=== PATIENT | female | born 2000 | race Caucasian/White ===

== ENCOUNTER 2023-12-08 12:35 | Emergency (ER) | payer SELFPAY ==
--- NOTE | 2023-12-08 12:55 | ERPHSYRPT ---
- History of Present Illness Time Seen by Provider: 12/08/23 12:50 Historian: patient Exam Limitations: no limitations Patient Subjective Stated Complaint: PT HERE FOR CHEST PAIN TO RIGHT SIDE OF CHEST TODAY WHILE AT WORK, NO COUGH,FEVER. SOME SOB AT WORK, NONE NOW Triage Nursing Assessment: PT ALERT, RESP EASY, SKIN W/D/P. WALKED IN GAIT STEADY, MOVES ALL EXT WELL, NO EDEMA NOTED Physician History: The patient, with a history of depression, presented with a new onset of chest pain that started at 10 o'clock while at work. The pain, described as "hammers hitting my chest," has been persistent since its onset. The patient rates the pain as a 6 out of 10 and also reports associated shortness of breath. There is no history of similar episodes in the past. The patient also reports increased frequency of urination and increased thirst, but denies any abdominal pain, nausea, vomiting, or diarrhea. There is a loca lized tenderness in the abdominal region. The patient denies any history of abdominal surgeries or any burning sensation during urination. The patient had consumed chicken after the onset of symptoms, which reportedly worsened the chest pain. The patient also requested medication for a concurrent headache. There is no recent change in medications, with the only regular medication being for depression, started last year. The patient denies any new [id number] supplements or vitamins. Timing/Duration: today Activities at Onset: activity Quality: pressure, sharpness Location: substernal Chest Pain Radiation: no radiation Severity of Pain-Max: severe Severity of Pain-Current: severe Modifying Factors: Improves With: nothing. Worsens With: exertion, movement Associated Symptoms: nausea, shortness of breath, headache, No vomiting, No palpitations, No heartburn, No abdominal pain, No cough, No fever, No edema, No back pain Prior Chest Pain/Cardiac Workup: no prior chest pain Nitro Today/Relief: 0.4 mg x 1, provided by ED Aspirin Treatment Today: 81 mg x 4, provided by ED Allergies/Adverse Reactions: No Known Drug Allergies Allergy (Unverified 12/08/23 12:41) Hx Tetanus, Diphtheria Vaccination/Date Given: No Hx Influenza Vaccination/Date Given: No Hx Pneumococcal Vaccination/Date Given: No Immunizations Up to Date: Yes Travel Risk - International Travel Have you traveled outside of the country in past 3 weeks: No - Emerging Infectious Disease Are you exhibiting symptoms associated with any current EIDs: No - Review of Systems All Other Systems: Reviewed and Negative - Female History Hx Last Menstrual Period: October Now: No - Social History Smoking Status: Never smoker Exposure to second hand smoke: Yes Drug Use: none - Social Determinants of Health Will the patient participate in the screening: Yes Do you worry about a steady place to live?: Yes Do you have any problems with any of the following?: No known problems In the past 12 months,have you had to go without utilities?: No Transportation Issues: No Has anyone in your support network made you feel unsafe?: No Have you or anyone in your house had to go without enough: No - Nursing Vital Signs Nursing Vital Signs: Initial Vital Signs Pulse Rate 92 H 12/08/23 12:34 Respiratory Rate 17 12/08/23 12:34 Blood Pressure 157/99 12/08/23 12:34 O2 Sat by Pulse Oximetry 100 12/08/23 12:34 Pain Scale Pain Intensity 4 - Physical Exam General Appearance: no apparent distress, obese Eye Exam: eyes nml inspection Ears, Nose, Throat Exam: normal ENT inspection Neck Exam: normal inspection, supple, full range of motion Respiratory Exam: normal breath sounds, lungs clear, airway intact, No chest tenderness, No respiratory distress Cardiovascular Exam: regular rate/rhythm, normal heart sounds, capillary refill <2 sec, No edema Gastrointestinal/Abdomen Exam: soft, No tenderness, No distention, No mass, No guarding, No rebound Extremity Exam: normal inspection, No swelling, No tenderness Neurologic Exam: alert, oriented x 3, cooperative Skin Exam: warm, dry, pale SpO2 Interpretation: normal O2 Delivery: Room Air - Course Nursing assessment & vital signs reviewed: Yes EKG Interpreted by Me: RATE (95), Sinus Rhythm, NORMAL AXIS, NORMAL INTERVALS, NORMAL QRS, NORMAL ST-T - Radiology Exams Chest X-ray Interpretation: Reviewed by me, Teleradiologist Report, Negative Ordered Tests: Medication Summary Discontinued Medications Generic Name Dose Route Start Last Admin Trade Name Freq PRN Reason Stop Dose Admin Acetaminophen 975 mg 12/08/23 12:57 12/08/23 13:25 Acetaminophen 325 Mg Tablet PO 12/08/23 12:58 975 mg STAT STA Administration Acetaminophen Confirm 12/08/23 13:10 Acetaminophen 325 Mg Tablet Administered 12/08/23 13:11 Dose 975 mg .ROUTE .STK-MED ONE Aspirin 324 mg 12/08/23 12:55 12/08/23 13:30 Aspirin 81 Mg Tab.Chew PO 12/08/23 12:56 324 mg STAT ONE Administration Aspirin Confirm 12/08/23 13:09 Aspirin 81 Mg Tab.Chew Administered 12/08/23 13:10 Dose 324 mg .ROUTE .STK-MED ONE Famotidine 20 mg 12/08/23 12:55 12/08/23 13:22 Famotidine 20 Mg/1 Vial IV 12/08/23 12:56 20 mg STAT ONE Administration Famotidine Confirm 12/08/23 13:10 Famotidine 20 Mg/1 Vial Administered 12/08/23 13:11 Dose 20 mg IV .STK-MED ONE Sodium Chloride 1,000 mls @ 999 mls/hr 12/08/23 12:55 12/08/23 14:31 Sodium Chloride 0.9% 1000 Ml IV 12/08/23 13:55 Infused .Q1H1M STA Infusion Sodium Chloride Confirm 12/08/23 13:11 Sodium Chloride 0.9% 1000 Ml Administered 12/08/23 13:12 Dose 1,000 mls @ ud .ROUTE .STK-MED ONE Nitroglycerin 0.4 mg 12/08/23 12:55 12/08/23 13:31 Nitroglycerin 0.4 Mg (Ed) 0.4 Mg Tab.Subl SL 12/08/23 12:56 0.4 mg STAT ONE Administration Nitroglycerin Confirm 12/08/23 13:10 Nitroglycerin 0.4 Mg (Ed) 0.4 Mg Tab.Subl Administered 12/08/23 13:11 Dose 0.4 mg SL .STK-MED ONE Lab/Rad Data: Laboratory Result Diagrams 12/08/23 12:55 12/08/23 12:55 Laboratory Results 12/08/23 12/08/23 12/08/23 Range/Units 14:17 13:30 12:55 WBC (3.98-10.04) x10^3/uL RBC (3.93-5.22) x10^6/uL Hgb (11.2-15.7) g/dL Hct (34.1-44.9) % MCV (79.4-94.8) fL MCH (25.6-32.2) pg MCHC (32.2-35.5) g/dL RDW (11.7-14.4) % Plt Count (182-369) x10^3/uL MPV (9.4-12.3) fL Gran % (34.0-71.1) % Immature Gran % (Auto) (0.001-0.429) % Nucleat RBC Rel Count (0.00-0.2) % Eos # (Auto) (0.04-0.36) x10^3/uL Immature Gran # (Auto) (0.001-0.031) x10^3u/L Absolute Lymphs (auto) (1.18-3.74) x10^3/uL Absolute Monos (auto) (0.24-0.86) x10^3/uL Absolute Nucleated RBC (0.00-0.012) x10^3u/L Lymphocytes % (19.3-51.7) % Monocytes % (4.7-12.5) % Eosinophils % (0.7-5.8) % Basophils % (0.1-1.2) % Absolute Granulocytes (1.56-6.13) x10^3/uL Basophils # (0.01-0.08) x10^3/uL PT (9.4-12.5) SECONDS INR (0.8-3.0) APTT (25.1-36.5) SECONDS D-Dimer (0.0-0.50) mg/L Sodium (135-145) mmol/L Potassium (3.5-5.1) mmol/L Chloride (98-107) mmol/L Carbon Dioxide (22-30) mmol/L Anion Gap (5-15) MEQ/L BUN (7-17) mg/dL Creatinine (0.52-1.04) mg/dL Estimated GFR ML/MIN Glucose (74-106) mg/dL Hemoglobin A1c (4.5-6.0) % Calcium (8.4-10.2) mg/dL Iron 37 (37-170) ug/dL TIBC 392 (265-462) ug/dL Iron Saturation 9 L (20-39) % Ferritin 6.07 L Total Bilirubin (0.2-1.3) mg/dL AST (14-36) U/L ALT (0-35) U/L Alkaline Phosphatase (38-126) U/L Troponin I (0.000-0.033) ng/mL Serum Total Protein (6.3-8.2) g/dL Albumin (3.5-5.0) g/dL Triglycerides (30-150) mg/dL Cholesterol (50-200) mg/dL LDL Cholesterol (30-100) mg/dL HDL Cholesterol (40-60) mg/dL Heart Disease Risk Ratio Serum HCG, Qual (NEGATIVE) Urine Opiates Level NEGATIVE (NEGATIVE) Ur Methadone NEGATIVE (NEGATIVE) Urine Barbiturates NEGATIVE (NEGATIVE) Ur Phencyclidine (PCP) NEGATIVE (NEGATIVE) Urine Amphetamine NEGATIVE (NEGATIVE) U Benzodiazepine Level NEGATIVE (NEGATIVE) Urine Cocaine NEGATIVE (NEGATIVE) Urine Marijuana (THC) NEGATIVE (NEGATIVE) 12/08/23 12/08/23 12/08/23 Range/Units 12:55 12:55 12:55 WBC (3.98-10.04) x10^3/uL RBC (3.93-5.22) x10^6/uL Hgb (11.2-15.7) g/dL Hct (34.1-44.9) % MCV (79.4-94.8) fL MCH (25.6-32.2) pg MCHC (32.2-35.5) g/dL RDW (11.7-14.4) % Plt Count (182-369) x10^3/uL MPV (9.4-12.3) fL Gran % (34.0-71.1) % Immature Gran % (Auto) (0.001-0.429) % Nucleat RBC Rel Count (0.00-0.2) % Eos # (Auto) (0.04-0.36) x10^3/uL Immature Gran # (Auto) (0.001-0.031) x10^3u/L Absolute Lymphs (auto) (1.18-3.74) x10^3/uL Absolute Monos (auto) (0.24-0.86) x10^3/uL Absolute Nucleated RBC (0.00-0.012) x10^3u/L Lymphocytes % (19.3-51.7) % Monocytes % (4.7-12.5) % Eosinophils % (0.7-5.8) % Basophils % (0.1-1.2) % Absolute Granulocytes (1.56-6.13) x10^3/uL Basophils # (0.01-0.08) x10^3/uL PT (9.4-12.5) SECONDS INR (0.8-3.0) APTT (25.1-36.5) SECONDS D-Dimer (0.0-0.50) mg/L Sodium (135-145) mmol/L Potassium (3.5-5.1) mmol/L Chloride (98-107) mmol/L Carbon Dioxide (22-30) mmol/L Anion Gap (5-15) MEQ/L BUN (7-17) mg/dL Creatinine (0.52-1.04) mg/dL Estimated GFR ML/MIN Glucose (74-106) mg/dL Hemoglobin A1c 5.15 (4.5-6.0) % Calcium (8.4-10.2) mg/dL Iron (37-170) ug/dL TIBC (265-462) ug/dL Iron Saturation (20-39) % Ferritin Total Bilirubin (0.2-1.3) mg/dL AST (14-36) U/L ALT (0-35) U/L Alkaline Phosphatase (38-126) U/L Troponin I < 0.012 (0.000-0.033) ng/mL Serum Total Protein (6.3-8.2) g/dL Albumin (3.5-5.0) g/dL Triglycerides (30-150) mg/dL Cholesterol (50-200) mg/dL LDL Cholesterol (30-100) mg/dL HDL Cholesterol (40-60) mg/dL Heart Disease Risk Ratio Serum HCG, Qual NEGATIVE (NEGATIVE) Urine Opiates Level (NEGATIVE) Ur Methadone (NEGATIVE) Urine Barbiturates (NEGATIVE) Ur Phencyclidine (PCP) (NEGATIVE) Urine Amphetamine (NEGATIVE) U Benzodiazepine Level (NEGATIVE) Urine Cocaine (NEGATIVE) Urine Marijuana (THC) (NEGATIVE) 12/08/23 12/08/23 12/08/23 Range/Units 12:55 12:55 12:55 WBC 7.9 (3.98-10.04) x10^3/uL RBC 4.83 (3.93-5.22) x10^6/uL Hgb 10.6 L (11.2-15.7) g/dL Hct 34.4 (34.1-44.9) % MCV 71.2 L (79.4-94.8) fL MCH 21.9 L (25.6-32.2) pg MCHC 30.8 L (32.2-35.5) g/dL RDW 14.6 H (11.7-14.4) % Plt Count 340 (182-369) x10^3/uL MPV 9.8 (9.4-12.3) fL Gran % 65.2 (34.0-71.1) % Immature Gran % (Auto) 0.4 (0.001-0.429) % Nucleat RBC Rel Count 0.0 (0.00-0.2) % Eos # (Auto) 0.12 (0.04-0.36) x10^3/uL Immature Gran # (Auto) 0.03 (0.001-0.031) x10^3u/L Absolute Lymphs (auto) 2.08 (1.18-3.74) x10^3/uL Absolute Monos (auto) 0.46 (0.24-0.86) x10^3/uL Absolute Nucleated RBC 0.00 (0.00-0.012) x10^3u/L Lymphocytes % 26.5 (19.3-51.7) % Monocytes % 5.9 (4.7-12.5) % Eosinophils % 1.5 (0.7-5.8) % Basophils % 0.5 (0.1-1.2) % Absolute Granulocytes 5.13 (1.56-6.13) x10^3/uL Basophils # 0.04 (0.01-0.08) x10^3/uL PT 10.4 (9.4-12.5) SECONDS INR 0.95 (0.8-3.0) APTT 28.2 (25.1-36.5) SECONDS D-Dimer < 0.19 (0.0-0.50) mg/L Sodium 140 (135-145) mmol/L Potassium 3.9 (3.5-5.1) mmol/L Chloride 106 (98-107) mmol/L Carbon Dioxide 23 (22-30) mmol/L Anion Gap 14.4 (5-15) MEQ/L BUN 15 (7-17) mg/dL Creatinine 0.88 (0.52-1.04) mg/dL Estimated GFR 93.5 ML/MIN Glucose 126 H (74-106) mg/dL Hemoglobin A1c (4.5-6.0) % Calcium 9.4 (8.4-10.2) mg/dL Iron (37-170) ug/dL TIBC (265-462) ug/dL Iron Saturation (20-39) % Ferritin Cancelled Total Bilirubin 0.30 (0.2-1.3) mg/dL AST 21 (14-36) U/L ALT 20 (0-35) U/L Alkaline Phosphatase 71 (38-126) U/L Troponin I (0.000-0.033) ng/mL Serum Total Protein 7.6 (6.3-8.2) g/dL Albumin 4.2 (3.5-5.0) g/dL Triglycerides 117 (30-150) mg/dL Cholesterol 187 (50-200) mg/dL LDL Cholesterol 106 H (30-100) mg/dL HDL Cholesterol 48 (40-60) mg/dL Heart Disease Risk Ratio 4.0 Serum HCG, Qual (NEGATIVE) Urine Opiates Level (NEGATIVE) Ur Methadone (NEGATIVE) Urine Barbiturates (NEGATIVE) Ur Phencyclidine (PCP) (NEGATIVE) Urine Amphetamine (NEGATIVE) U Benzodiazepine Level (NEGATIVE) Urine Cocaine (NEGATIVE) Urine Marijuana (THC) (NEGATIVE) - Progress Progress: improved Air Movement: good Progress Note: Cardiac workup negative, low risk. Patient found to have iron deficiency anemia, likely secondary to heavy menstrual bleeding. No need for transfusion today. Will prescribe Iron tablets and recommend close follow up to monitor Hb and workup heavy bleeding. Blood Culture(s) Obtained: No Antibiotics given: No Counseled pt/family regarding: lab results, diagnosis, need for follow-up, rad results Medical Desision Making - Diagnostic Testing Diagnostic test were ordered, analyzed, and reviewed by me: Yes Radiological Interpretation: Interpreted by me, Reviewed by me, Teleradiologist Report - Risk of complications The pt has a mod risk of morbidity or mortality based on: Need for prescription drug management - Departure Departure Disposition: Home Clinical Impression: Iron deficiency anemia, Chest pain, Low ferritin Condition: Good Critical Care Time: No Referrals: SEBAS ARIAS [ACTIVE STAFF] - Follow up/PCP as directed Instructions: Anemia caused by low iron Prescriptions: Ferrous Sulfate [Iron] 325 mg PO DAILY 30 Days #30 tablet
[2023-12-08 13:06] LABS: Absolute Neutrophil Ct (ANC) 5.13 x10^3/uL (1.56-6.13); BASOPHIL % 0.5 % (0.1-1.2); Basophil (Absolute #) 0.04 x10^3/uL (0.01-0.08); Eosinophil % 1.5 % (0.7-5.8); Eosinophil (Absolute #) 0.12 x10^3/uL (0.04-0.36); Hematocrit 34.4 % (34.1-44.9); Hemoglobin 10.6 g/dL (11.2-15.7); IMMATURE GRAN # 0.03 x10^3u/L (0.001-0.031); IMMATURE GRAN % 0.4 % (0.001-0.429); Lymphocyte (Absolute #) 2.08 x10^3/uL (1.18-3.74); Lymphocytes % 26.5 % (19.3-51.7); Mean Cell Volume 71.2 fL (79.4-94.8); Mean Corpuscular Hemoglobin 21.9 pg (25.6-32.2); Mean Corpuscular Hgb Concent. 30.8 g/dL (32.2-35.5); Mean Platelet Volume 9.8 fL (9.4-12.3); Monocyte (Absolute #) 0.46 x10^3/uL (0.24-0.86); Monocytes % 5.9 % (4.7-12.5); Neutrophil % 65.2 % (34.0-71.1); Platelet Count 340 x10^3/uL (182-369); Red Blood Count 4.83 x10^6/uL (3.93-5.22); Red Cell Distribution Width 14.6 % (11.7-14.4); White Blood Count 7.9 x10^3/uL (3.98-10.04)
[2023-12-08] MEDS ORDERED: BABY ASPIRIN 81 MG CHEW ONE (13:09)
[2023-12-08] MEDS ORDERED: Pepcid 20 MG VIAL IV ONE (13:10)
[2023-12-08] MEDS ORDERED: TYLENOL 325 MG ONE (13:10)
[2023-12-08] MEDS ORDERED: Nitrostat 0.4 MG (ED) SL ONE (13:10)
[2023-12-08] MEDS ORDERED: Sodium Chloride 0.9% 1000 ML 1,000 ML ONE (13:11)
[2023-12-08] MEDS: Sodium Chloride 0.9% 1000 ML 1,000 ML IV STA (13:18)
[2023-12-08 13:19] LABS: HCG SERUM TEST NEGATIVE (NEGATIVE)
[2023-12-08 13:22] LABS: D-DIMER QUANTITATIVE < 0.19 mg/L (0.0-0.50); INR 0.95 (0.8-3.0); PROTIME 10.4 SECONDS (9.4-12.5); PTT 28.2 SECONDS (25.1-36.5)
[2023-12-08] MEDS: Pepcid 20 MG VIAL IV ONE (13:22)
--- NOTE | 2023-12-08 13:22 | XRAY ---
Indication: Chest pain. Comparison: None Portable apical lordotic chest demonstrates normal heart, lungs, and bony thorax.
[2023-12-08] MEDS: TYLENOL 325 MG PO STA (13:25)
[2023-12-08] MEDS: BABY ASPIRIN 81 MG CHEW PO ONE (13:30)
[2023-12-08] MEDS: Nitrostat 0.4 MG (ED) SL ONE (13:31)
[2023-12-08 13:49] LABS: ALBUMIN 4.2 g/dL (3.5-5.0); ANION GAP 14.4 MEQ/L (5-15); BILIRUBIN,TOTAL 0.3 mg/dL (0.2-1.3); Calcium 9.4 mg/dL (8.4-10.2); Creatinine 1 0.88 mg/dL (0.52-1.04); EST GLOMERULAR FILTRATION RATE 93.5 ML/MIN; Potassium 3.9 mmol/L (3.5-5.1); Total Protein 7.6 g/dL (6.3-8.2)
[2023-12-08 14:19] VITALS: BP 117/82; PULSE 90; RESP 18; O2SAT 100
[2023-12-08 14:40] LABS: Iron 37 ug/dL (37-170); Iron Saturation 9 % (20-39); TIBC 392 ug/dL (265-462)
[2023-12-08 14:43] LABS: Amphetamine,Urine NEGATIVE (NEGATIVE); Barbiturate,Urine NEGATIVE (NEGATIVE); Benzodiazepine,Urine NEGATIVE (NEGATIVE); Cocaine,Urine NEGATIVE (NEGATIVE); Methadone,Urine NEGATIVE (NEGATIVE); Opiate,Urine NEGATIVE (NEGATIVE); PCP,Urine NEGATIVE (NEGATIVE); THC,Urine NEGATIVE (NEGATIVE)
== END 2023-12-08 15:38 | disposition home or self-care (01) ==
LOC: ED 12:35
DX: D50.9 Iron deficiency anemia, unspecified (principal); R07.9 Chest pain, unspecified; R79.89 Other specified abnormal findings of blood chemistry; R06.02 Shortness of breath; R35.0 Frequency of micturition; R63.1 Polydipsia; R10.9 Unspecified abdominal pain; R51.9 Headache, unspecified; Z59.9 Problem related to housing and economic circumstances, unspecified
CPT/HCPCS: 36000; 36415; 71045; 80053; 80061; 80307; 82728; 83036; 83540; 83550; 83721; 84484; 84703; 85025; 85379; 85610; 85730; 93005; 93041; 96374; 96375; 96376; 99284; A9270-GY

== ENCOUNTER 2024-01-20 17:32 | Emergency (ER) | payer BC ==
[2024-01-20 17:51] VITALS: BP 133/80; PULSE 82; RESP 16; TEMP 97.5; O2SAT 100
[2024-01-20] MEDS ORDERED: TORAdol 30 mg Injection ONE (17:57)
[2024-01-20] MEDS: TORAdol 30 mg Injection IV ONE (17:58)
--- NOTE | 2024-01-20 18:02 | ERPHSYRPT ---
- History of Present Illness Time Seen by Provider: 01/20/24 17:48 Source: patient Exam Limitations: no limitations Patient Subjective Stated Complaint: C/O right shoulder pain that radiates down her right arm. States the pain began Friday night and hasn't resolved. Denies falls, trauma, injury. Triage Nursing Assessment: Patient ambulated back to ER. She is alert and oriented. Patient able to remove own shirt and bra and left her arms over her head without difficulties when changing into her ER gown. No skin alterations noted to right shoulder. 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 Pain started while she was at work. 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 Patient reports that she is left-hand dominant. No trauma no falls no injuries. Pain described as an ache. Pain worse with active movement and muscular palpation. Pain described as a soreness sensation. No associated nausea vomiting. No urinary discoloration. No chest pain or shortness of breath. Symptoms are mild to moderate in intensity. Patient has taken [id number] analgesics with some relief. Patient otherwise feels well. She voices no other complaints or concerns at this time. Portions of this note were created with voice recognition technology. There may be grammatical, spelling, punctuation or sound alike errors Occurred: just prior to arrival Quality: intermittent Severity of Pain-Max: moderate Severity of Pain-Current: mild Extremities Pain Location: shoulder: right, arm: right, forearm: right Modifying Factors: Improves With: movement Associated Symptoms: none Allergies/Adverse Reactions: No Known Drug Allergies Allergy (Verified 01/20/24 17:38) Hx Tetanus, Diphtheria Vaccination/Date Given: Yes Hx Influenza Vaccination/Date Given: Yes Hx Pneumococcal Vaccination/Date Given: No Immunizations Up to Date: Yes Travel Risk - International Travel Have you traveled outside of the country in past 3 weeks: No - Emerging Infectious Disease Are you exhibiting symptoms associated with any current EIDs: No - Review of Systems Constitutional: No Symptoms, No Fever, No Chills Eyes: No Symptoms Ears, Nose, & Throat: No Symptoms Respiratory: No Symptoms, No Cough, No Dyspnea Cardiac: No Symptoms, No Chest Pain, No Edema, No Syncope Abdominal/Gastrointestinal: No Symptoms, No Abdominal Pain, No Nausea, No Vomiting, No Diarrhea Genitourinary Symptoms: No Symptoms, No Dysuria Musculoskeletal: No Symptoms, No Back Pain, No Neck Pain Skin: No Symptoms, No Rash Neurological: No Symptoms, No Dizziness, No Focal Weakness, No Sensory Changes Psychological: No Symptoms Endocrine: No Symptoms Hematologic/Lymphatic: No Symptoms Immunological/Allergic: No Symptoms All Other Systems: Reviewed and Negative - Past Medical History Pertinent Past Medical History: Yes Psycho-Social History: Depression - Past Surgical History Past Surgical History: No - Female History Hx Last Menstrual Period: NOW Hx Now: No - Social History Smoking Status: Never smoker Exposure to second hand smoke: Yes Drug Use: none - Social Determinants of Health Will the patient participate in the screening: Declined to provide - Nursing Vital Signs Nursing Vital Signs: Initial Vital Signs Temperature 97.5 F 01/20/24 17:39 Pulse Rate 82 01/20/24 17:39 Respiratory Rate 16 01/20/24 17:39 Blood Pressure 133/80 01/20/24 17:39 O2 Sat by Pulse Oximetry 100 01/20/24 17:39 Pain Scale Pain Intensity 8 - Physical Exam General Appearance: no apparent distress, alert Eyes, Ears, Nose, Throat Exam: moist mucous membranes Neck Exam: non-tender, supple Cardiovascular/Respiratory Exam: chest non-tender, normal breath sounds, regular rate/rhythm, no respiratory distress Abdominal Exam: non-tender, No guarding Back Exam: normal inspection, No vertebral tenderness Shoulder Exam: normal inspection, no evidence of injury, normal ROM Elbow/Forearm Exam: normal inspection, no evidence of injury, normal ROM, No non-tender Wrist Exam: normal inspection, no evidence of injury, normal ROM Hand Exam: normal inspection, no evidence of injury, normal ROM Neuro/Tendon Exam: normal sensation, normal motor functions Mental Status Exam: alert, oriented x 3, cooperative Skin Exam: normal color, warm, dry SpO2 Interpretation: normal SpO2: 100 O2 Delivery: Room Air - Course Nursing assessment & vital signs reviewed: Yes Ordered Tests: Active Orders 24 hr Category Date Time Status EKG-ER Only STAT Care 01/20/24 17:54 Active Medication Summary Discontinued Medications Generic Name Dose Route Start Last Admin Trade Name Freq PRN Reason Stop Dose Admin Ketorolac Tromethamine 30 mg 01/20/24 17:54 Ketorolac Tromethamine 30 Mg/Ml Inj IV 01/20/24 17:55 STAT ONE Ketorolac Tromethamine Confirm 01/20/24 17:57 Ketorolac Tromethamine 30 Mg/Ml Inj Administered 01/20/24 17:58 Dose 30 mg .ROUTE .STK-MED ONE - Progress Progress: improved Progress Note: 23-year-old female presents to our ED with arm pain x 2 days. Patient has muscular soreness and physical exam. No trauma. The involved extremities neurovascular tact distally compartments are soft cap refill less than 2 seconds. Light touch intact. Active motion within normal limits. EKG sinus rhythm. Patient referred to the orthopedic clinic for follow-up. Patient received IM Toradol for pain control. He prescription for the same forwarded to patient's pharmacy. Patient voices no other complaints or concerns at this time. Portions of this note were created with voice recognition technology. There may be grammatical, spelling, punctuation or sound alike errors Complexity problem addressed is moderate acute complicated. No critical care time. Complexity of data reviewed and analyzed is none. Diagnosis made based on history and physical exam. No specialized testing ordered. Patient referred to orthopedics for follow-up. Risk of complication and or risk of morbidity/mortality patient management is moderate. A prescription for for Toradol forwarded to patient's pharmacy. Vital stable. Time spent to discharge patient approximately 10 minutes. Plan of care established for shared decision making. No social determinants of health present to impede follow-up. Portions of this note were created with voice recognition technology. There may be grammatical, spelling, punctuation or sound alike errors 01/20/24 18:00 Counseled pt/family regarding: diagnosis, need for follow-up - Departure Departure Disposition: Home Clinical Impression: Muscle strain, Arm pain Condition: Stable Critical Care Time: No Referrals: FIONA MERINO FNP [Primary Care Provider] - Follow up/PCP as directed Additional Instructions: Discharge/Care Plan FIONA WHELAN was seen on 01/20/24 in the Emergency Room. The patient was counseled regarding Diagnosis,Lab results, Imaging studies, need for follow up and when to return to the Emergency Room. Prescriptions given: Discharge Note I have spoken with the patient and/or caregivers. I have explained the patient's condition, diagnosis and treatment plan based on the information available to me at this time. I have answered the patient's and/or caregiver's questions and addressed any concerns. The patient and/or caregivers have as good understanding of the patient's diagnosis, condition and treatment plan as can be expected at this point. The vital signs have been stable. The patient's condition is stable and appropriate for discharge from the emergency department. The patient will pursue further outpatient evaluation with the primary care physician or other designated or consulting physician as outlined in the discharge instructions. The patient and/or caregivers are agreeable to this plan of care and follow-up instructions have been explained in detail. The patient and/or caregivers have received these instruction. The patient/and or caregivers are aware that any significant change in condition or worsening of symptoms should prompt an immediate return to this or the closest emergency department or call 911. Prescriptions: Ketorolac Trometh 10 mg Tab [TORAdol 10 MG TABLET] 10 mg PO TID 5 Days #15 tablet Outpatient Orders: Ortho Referral Time Frame: 1 Day, Facility: [facility]. Hosp, Location: [facility]
== END 2024-01-20 18:20 | disposition home or self-care (01) ==
LOC: ED 17:32
DX: S46.911A Strain of unspecified muscle, fascia and tendon at shoulder and upper arm level, right arm, initial encounter (principal); M79.601 Pain in right arm
CPT/HCPCS: 93005; 96372; 99283; J1885

== ENCOUNTER 2024-03-17 20:50 | Emergency (ER) | payer BC ==
[2024-03-17 21:01] VITALS: TEMP 98
[2024-03-17 21:41] LABS: BASOPHIL % 0.5 % (0.1-1.2); Basophil (Absolute #) 0.04 x10^3/uL (0.01-0.08); Eosinophil % 1.1 % (0.7-5.8); Hematocrit 33.9 % (34.1-44.9); Hemoglobin 10.6 g/dL (11.2-15.7); IMMATURE GRAN # 0.03 x10^3u/L (0.001-0.031); IMMATURE GRAN % 0.3 % (0.001-0.429); Lymphocyte (Absolute #) 2.65 x10^3/uL (1.18-3.74); Lymphocytes % 29.9 % (19.3-51.7); Mean Cell Volume 71.7 fL (79.4-94.8); Mean Corpuscular Hemoglobin 22.4 pg (25.6-32.2); Mean Corpuscular Hgb Concent. 31.3 g/dL (32.2-35.5); Mean Platelet Volume 9.6 fL (9.4-12.3); Monocyte (Absolute #) 0.55 x10^3/uL (0.24-0.86); Monocytes % 6.2 % (4.7-12.5); Platelet Count 345 x10^3/uL (182-369); Red Blood Count 4.73 x10^6/uL (3.93-5.22); Red Cell Distribution Width 14.6 % (11.7-14.4); White Blood Count 8.9 x10^3/uL (3.98-10.04)
[2024-03-17 22:07] LABS: ALBUMIN 4.2 g/dL (3.5-5.0); ANION GAP 14.6 MEQ/L (5-15); BILIRUBIN,TOTAL 0.3 mg/dL (0.2-1.3); Calcium 9.2 mg/dL (8.4-10.2); Creatinine 1 0.88 mg/dL (0.52-1.04); EST GLOMERULAR FILTRATION RATE 93.5 ML/MIN; Total Protein 7.5 g/dL (6.3-8.2)
[2024-03-17 22:11] VITALS: BP 124/84; PULSE 81; RESP 18; O2SAT 98
--- NOTE | 2024-03-17 22:48 | ERPHSYRPT ---
- History of Present Illness Time Seen by Provider: 03/17/24 22:49 Source: patient Exam Limitations: no limitations Patient Subjective Stated Complaint: pain behind my ears all day, then it started to come down to my chest and my back Triage Nursing Assessment: Pt ambulated into ER without diff, Pt alert and oriented x4. Pt c/o pain behind her ears since 6am today and radiated to her neck/upper chest area and back. Rt ear is red, no drainage noted. Lt ear appears normal. Pt describes pain as stabbing, states, "I can't even lay on my ears because they hurt". Physician History: 23-year-old female presents to our ED for evaluation of pain to her neck shoulders down into her upper chest. Symptoms have been ongoing for the past couple days and got progressively worse. No trauma no fever. Patient reports starting a new job. Patient has been working at a local [employer] for the past 4 months. 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 The activity correlates with the pain patient has been experiencing. No associated nausea vomiting or diaphoresis. Patient reports she is otherwise healthy. She admits to vaping. However this is not a new activity. Patient otherwise feels well. She voices no other complaints or concerns at this time. Portions of this note were created with voice recognition technology. There may be grammatical, spelling, punctuation or sound alike errors Timing/Duration: day(s) (3 to 4 days) Severity: moderate Modifying Factors: Improves With: movement (Movement and palpation) Associated Symptoms: denies symptoms Allergies/Adverse Reactions: shrimp Allergy (Severe, Verified 03/17/24 21:09) Swelling Home Medications: Cyclobenzaprine HCl 10 mg [Cyclobenzaprine 10 MG] 1 tab PO DAILY 03/17/24 [History] Hx Tetanus, Diphtheria Vaccination/Date Given: Yes Hx Influenza Vaccination/Date Given: No Hx Pneumococcal Vaccination/Date Given: No Travel Risk - International Travel Have you traveled outside of the country in past 3 weeks: No - Emerging Infectious Disease Are you exhibiting symptoms associated with any current EIDs: No - Review of Systems Constitutional: No Symptoms, No Fever, No Chills Eyes: No Symptoms Ears, Nose, & Throat: No Symptoms Respiratory: No Symptoms, No Cough, No Dyspnea Cardiac: No Symptoms, No Chest Pain, No Edema, No Syncope Abdominal/Gastrointestinal: No Symptoms, No Abdominal Pain, No Nausea, No Vomiting, No Diarrhea Genitourinary Symptoms: No Symptoms, No Dysuria Musculoskeletal: No Symptoms, No Back Pain, No Neck Pain Skin: No Symptoms, No Rash Neurological: No Symptoms, No Dizziness, No Focal Weakness, No Sensory Changes Psychological: No Symptoms Endocrine: No Symptoms Hematologic/Lymphatic: No Symptoms Immunological/Allergic: No Symptoms All Other Systems: Reviewed and Negative - Past Medical History Pertinent Past Medical History: Yes Psycho-Social History: Depression - Past Surgical History Past Surgical History: No - Female History Hx Last Menstrual Period: 02/2024 Hx Now: No - Social History Smoking Status: Current every day smoker Exposure to second hand smoke: Yes Drug Use: none - Social Determinants of Health Will the patient participate in the screening: Yes Do you worry about a steady place to live?: No Do you have any problems with any of the following?: No known problems In the past 12 months,have you had to go without utilities?: No Transportation Issues: No Has anyone in your support network made you feel unsafe?: No Have you or anyone in your house had to go without enough: No - Nursing Vital Signs Nursing Vital Signs: Initial Vital Signs Temperature 98.0 F 03/17/24 20:51 Pulse Rate 82 03/17/24 20:51 Respiratory Rate 18 03/17/24 20:51 Blood Pressure 131/88 03/17/24 20:51 O2 Sat by Pulse Oximetry 99 03/17/24 20:51 Pain Scale Pain Intensity [Ear] 8 Pain Intensity 7 - Physical Exam General Appearance: no apparent distress, alert Eye Exam: PERRL/EOMI, eyes nml inspection Ears, Nose, Throat Exam: normal ENT inspection, TMs normal, pharynx normal, moist mucous membranes Neck Exam: normal inspection, non-tender, supple, full range of motion Respiratory Exam: normal breath sounds, lungs clear, airway intact, No respiratory distress Cardiovascular Exam: regular rate/rhythm, normal heart sounds, normal peripheral pulses Gastrointestinal/Abdomen Exam: soft, normal bowel sounds, No tenderness, No mass Back Exam: normal inspection, normal range of motion, No CVA tenderness, No vertebral tenderness Extremity Exam: normal inspection, normal range of motion, pelvis stable Neurologic Exam: alert, oriented x 3, cooperative, normal mood/affect, sensation nml, No motor deficits Skin Exam: normal color, warm, dry, No rash Lymphatic Exam: No adenopathy SpO2 Interpretation: normal SpO2: 98 O2 Delivery: Room Air - Course Nursing assessment & vital signs reviewed: Yes Ordered Tests: Active Orders 24 hr Category Date Time Status CBC W DIFF Stat Lab 03/17/24 21:38 Completed CMP Stat Lab 03/17/24 21:38 Completed D-DIMER QUANTITATIVE Stat Lab 03/17/24 21:38 Completed TROPONIN Q4H Lab 03/17/24 21:38 Completed Lab/Rad Data: Laboratory Result Diagrams 03/17/24 21:38 03/17/24 21:38 Laboratory Results 03/17/24 03/17/24 03/17/24 Range/Units 21:38 21:38 21:38 WBC (3.98-10.04) x10^3/uL RBC (3.93-5.22) x10^6/uL Hgb (11.2-15.7) g/dL Hct (34.1-44.9) % MCV (79.4-94.8) fL MCH (25.6-32.2) pg MCHC (32.2-35.5) g/dL RDW (11.7-14.4) % Plt Count (182-369) x10^3/uL MPV (9.4-12.3) fL Gran % (34.0-71.1) % Immature Gran % (Auto) (0.001-0.429) % Nucleat RBC Rel Count (0.00-0.2) % Eos # (Auto) (0.04-0.36) x10^3/uL Immature Gran # (Auto) (0.001-0.031) x10^3u/L Absolute Lymphs (auto) (1.18-3.74) x10^3/uL Absolute Monos (auto) (0.24-0.86) x10^3/uL Absolute Nucleated RBC (0.00-0.012) x10^3u/L Lymphocytes % (19.3-51.7) % Monocytes % (4.7-12.5) % Eosinophils % (0.7-5.8) % Basophils % (0.1-1.2) % Absolute Granulocytes (1.56-6.13) x10^3/uL Basophils # (0.01-0.08) x10^3/uL D-Dimer 0.21 (0.0-0.50) mg/L Sodium 139 (135-145) mmol/L Potassium 4.0 (3.5-5.1) mmol/L Chloride 105 (98-107) mmol/L Carbon Dioxide 23 (22-30) mmol/L Anion Gap 14.6 (5-15) MEQ/L BUN 14 (7-17) mg/dL Creatinine 0.88 (0.52-1.04) mg/dL Estimated GFR 93.5 ML/MIN Glucose 97 (74-106) mg/dL Calcium 9.2 (8.4-10.2) mg/dL Total Bilirubin 0.30 (0.2-1.3) mg/dL AST 24 (14-36) U/L ALT 19 (0-35) U/L Alkaline Phosphatase 67 (38-126) U/L Troponin I < 0.012 (0.000-0.033) ng/mL Serum Total Protein 7.5 (6.3-8.2) g/dL Albumin 4.2 (3.5-5.0) g/dL 03/17/24 Range/Units 21:38 WBC 8.9 (3.98-10.04) x10^3/uL RBC 4.73 (3.93-5.22) x10^6/uL Hgb 10.6 L (11.2-15.7) g/dL Hct 33.9 L (34.1-44.9) % MCV 71.7 L (79.4-94.8) fL MCH 22.4 L (25.6-32.2) pg MCHC 31.3 L (32.2-35.5) g/dL RDW 14.6 H (11.7-14.4) % Plt Count 345 (182-369) x10^3/uL MPV 9.6 (9.4-12.3) fL Gran % 62.0 (34.0-71.1) % Immature Gran % (Auto) 0.3 (0.001-0.429) % Nucleat RBC Rel Count 0.0 (0.00-0.2) % Eos # (Auto) 0.10 (0.04-0.36) x10^3/uL Immature Gran # (Auto) 0.03 (0.001-0.031) x10^3u/L Absolute Lymphs (auto) 2.65 (1.18-3.74) x10^3/uL Absolute Monos (auto) 0.55 (0.24-0.86) x10^3/uL Absolute Nucleated RBC 0.00 (0.00-0.012) x10^3u/L Lymphocytes % 29.9 (19.3-51.7) % Monocytes % 6.2 (4.7-12.5) % Eosinophils % 1.1 (0.7-5.8) % Basophils % 0.5 (0.1-1.2) % Absolute Granulocytes 5.50 (1.56-6.13) x10^3/uL Basophils # 0.04 (0.01-0.08) x10^3/uL D-Dimer (0.0-0.50) mg/L Sodium (135-145) mmol/L Potassium (3.5-5.1) mmol/L Chloride (98-107) mmol/L Carbon Dioxide (22-30) mmol/L Anion Gap (5-15) MEQ/L BUN (7-17) mg/dL Creatinine (0.52-1.04) mg/dL Estimated GFR ML/MIN Glucose (74-106) mg/dL Calcium (8.4-10.2) mg/dL Total Bilirubin (0.2-1.3) mg/dL AST (14-36) U/L ALT (0-35) U/L Alkaline Phosphatase (38-126) U/L Troponin I (0.000-0.033) ng/mL Serum Total Protein (6.3-8.2) g/dL Albumin (3.5-5.0) g/dL - Progress Progress: improved Progress Note: 23-year-old female presents to emergency department for evaluation of pain from her base of her skull down the upper trapezius into the upper chest area. The area is tender to palpation. Overlying soft tissue intact. Physical exam indicates that her pain is muscular. Screening laboratory workup negative for coronary causes. EKG normal sinus rhythm. Patient declined pain medication. 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 It appears that patient symptomology is secondary to repetitive motion of heavy buckets of candy. Patient's muscular pattern of tenderness is commensurate with the physical activity she performs at work. A work note provided. Patient to have the next few days off patient will return to work on Friday as long as her symptoms have resolved. Patient otherwise feels well. Patient is known to have a microcytic anemia. Patient currently on iron supplementation. Patient's primary care provider is aware. Patient reports she has heavy periods which is likely the cause of her microcytic anemia. She voices no other complaints or concerns at this time. Will discharge home. Portions of this note were created with voice recognition technology. There may be grammatical, spelling, punctuation or sound alike errors Complexity of problem addressed is moderate acute complicated. No critical care time. Complexity of data reviewed and analyzed is moderate. Test ordered test reviewed results analyzed and correlated clinically with history and physical exam. Risk of complication and or risk of morbidity/mortality of patient management is low. Vital stable. Time spent to discharge patient approximately 15 minutes. Plan of care established for shared decision making. No social determinants of health present to impede follow-up. Portions of this note were created with voice recognition technology. There may be grammatical, spelling, punctuation or sound alike errors 03/17/24 22:58 Counseled pt/family regarding: lab results, diagnosis, need for follow-up - Departure Departure Disposition: Home Clinical Impression: Cervical strain, Normocytic anemia, Repetitive motion disorder Condition: Stable Critical Care Time: No Referrals: FIONA MERINO [employer] [Primary Care Provider] - Follow up/PCP as directed Additional Instructions: Discharge/Care Plan FIONA WHELAN was seen on 03/17/24 in the Emergency Room. The patient was counseled regarding Diagnosis,Lab results, Imaging studies, need for follow up and when to return to the Emergency Room. Prescriptions given: Discharge Note I have spoken with the patient and/or caregivers. I have explained the patient's condition, diagnosis and treatment plan based on the information available to me at this time. I have answered the patient's and/or caregiver's questions and addressed any concerns. The patient and/or caregivers have as good understanding of the patient's diagnosis, condition and treatment plan as can be expected at this point. The vital signs have been stable. The patient's condition is stable and appropriate for discharge from the emergency department. The patient will pursue further outpatient evaluation with the primary care physician or other designated or consulting physician as outlined in the discharge instructions. The patient and/or caregivers are agreeable to this plan of care and follow-up instructions have been explained in detail. The patient and/or caregivers have received these instruction. The patient/and or caregivers are aware that any significant change in condition or worsening of symptoms should prompt an immediate return to this or the closest emergency department or call 911. Forms: Work/School Release Form
== END 2024-03-17 23:02 | disposition home or self-care (01) ==
LOC: ED 20:50
DX: S16.1XXA Strain of muscle, fascia and tendon at neck level, initial encounter (principal); X50.3XXA Overexertion from repetitive movements, initial encounter; D64.9 Anemia, unspecified; R07.9 Chest pain, unspecified; M25.511 Pain in right shoulder; M25.512 Pain in left shoulder; Z79.899 Other long term (current) drug therapy; Z72.0 Tobacco use
CPT/HCPCS: 36415; 80053; 84484; 85025; 85379; 93005; 99283